=== PATIENT | female | born 1965 | race Caucasian/White ===

== ENCOUNTER 2023-04-15 10:53 | Outpatient (CLI) | payer MEDICARE | END 2023-04-15 10:54 | disposition home or self-care (01) | LOC: BICMRI 10:53 → EDSTATUS 11:00 | PROVIDERS: ATTEND Orthopaedic Surgery | DX: M25.562 Pain in left knee (principal); S83.282A Other tear of lateral meniscus, current injury, left knee, initial encounter; M23.301 Other meniscus derangements, unspecified lateral meniscus, left knee; M22.8X2 Other disorders of patella, left knee; M25.462 Effusion, left knee; M47.22 Other spondylosis with radiculopathy, cervical region | CPT/HCPCS: 72141 ==